=== PATIENT | female | born 1945 | race Caucasian/White ===

== ENCOUNTER 2017-08-24 06:55 | Emergency (ER) | payer MEDICARE ==
[2017-08-24] MEDS ORDERED: IPRATROPIUM/ALBUTEROL (0.5MG/3MG) NEB INH ONE (07:09)
--- NOTE | 2017-08-24 07:27 | Emergency Department Record ---
History of Present Illness - General Chief Complaint: Shortness of breath Stated Complaint: CÉSAR Time Seen by Provider: 08/24/17 07:13 Source: Patient Mode of Arrival: Ambulatory Limitations: No limitations - History of Present Illness Initial Comments: The patient is here due to a cough and congestion with SOB. She has been ill for over a week with a cold and now for the last few days it has moved into her chest. She is coughing up small amounts of sputum but denies any CP, back pain, fever, chills, or body aches. The patient states she did take some cold medicine last night and feels that her head is now plugged up also. MD Complaint: Cough, Shortness of breath Onset/Timin -: Days(s) Severity scale (1-10): 6 Quality: Aching Consistency: Intermittent Worsens With: Coughing Associated Symptoms: Cough - Related Data Home Oxygen Therapy: No Home Medications Medication Instructions Recorded Confirmed Last Taken Carisoprodol [Soma] 350 mg PO ASDIR PRN 08/24/17 08/24/17 Unknown Fludrocortisone Acetate [Florinef] 0.25 mg PO QPM 08/24/17 08/24/17 Unknown Fludrocortisone Acetate [Florinef] 0.5 mg PO QAM 08/24/17 08/24/17 Unknown Hydrocortisone Sod Succinate 100 mg IJ ASDIR PRN 08/24/17 08/24/17 Unknown [Solu-Cortef] Hydrocortisone [Cortef] 2.5 mg PO QPM 08/24/17 08/24/17 Unknown Hydrocortisone [Cortef] 12.5 mg PO QAM 08/24/17 08/24/17 Unknown Hydromorphone HCl 2 mg PO Q4H PRN 08/24/17 08/24/17 Unknown Loratadine [Claritin] 10 mg PO ASDIR PRN 08/24/17 08/24/17 Unknown Metoprolol Tartrate [Lopressor] 12.5 mg PO Q12H 08/24/17 08/24/17 Unknown Omeprazole [Prilosec] 20 mg PO DAILY 08/24/17 08/24/17 Unknown Thyroid,Pork [Nature-Throid] 113.75 mg PO BID 08/24/17 08/24/17 Unknown Previous Rx's Medication Instructions Recorded Benzonatate [Tessalon Perle] 100 mg PO TID #20 capsule 08/24/17 Doxycycline Monohydrate [Mondoxyne 100 mg PO BID #20 capsule 08/24/17 Nl] Allergies Allergy/AdvReac Type Severity Reaction Status Date / Time meperidine [From Demerol] Allergy VOMITING Verified 08/24/17 06:58 acetaminophen [From Vicodin] AdvReac HALLUCINATI Verified 08/24/17 07:03 ONS codeine AdvReac HALLUCINATI Verified 08/24/17 07:03 ONS cyclobenzaprine AdvReac NAUSEA Verified 08/24/17 07:03 [From Flexeril] hydrocodone [From Vicodin] AdvReac HALLUCINATI Verified 08/24/17 07:03 ONS oxycodone AdvReac HALLUCINATI Verified 08/24/17 07:03 ONS tramadol AdvReac Hallucinati Verified 08/24/17 07:03 ons Travel Screening - Travel/Exposure Within Last 30 Days Have you traveled within the last 30 days?: No - Travel Symptoms Symptom Screening: None Review of Systems Constitutional: Reports: Malaise. Denies: Chills, Fever Eyes: Denies: Eye discharge ENT: Reports: Congestion Respiratory: Reports: Cough, Dyspnea. Denies: Hemoptysis, Stridor Cardiovascular: Denies: Arrhythmia, Chest pain Past Medical History - SOCIAL HISTORY Smoking Status: Never smoker - RESPIRATORY Hx Respiratory Disorders: No - CARDIOVASCULAR Hx Cardio Disorders: Yes Hx Hypertension: Yes - NEURO Hx Neuro Disorders: Yes Comment:: Cushings Disease - GI Hx GI Disorders: Yes Hx Reflux: Yes - Hx Genitourinary Disorders: Yes Hx Kidney Stones: Yes - ENDOCRINE Hx Endocrine Disorders: Yes Hx Thyroid Disease: Yes - MUSCULOSKELETAL Hx Musculoskeletal Disorders: Yes - PSYCH Hx Psych Problems: No - HEMATOLOGY/ONCOLOGY Hx Hematology/Oncology Disorders: No Family Medical History Any Significant Family History?: Yes Family Hx Comment (NOT TO BE USED IN PLACE OF ITEMS BELOW): Mom w/ circulatoin issues Hx Cancer: Grandparents Hx Heart Disease: Brother/Sister, Grandparents Hx Resp Disorders: Father Physical Exam - General General Appearance: Alert, Oriented x3, Cooperative, No acute distress - Head Head exam: Atraumatic, Normocephalic, Normal inspection - Eye Eye exam: Normal appearance, PERRL - ENT Throat exam: Normal inspection. negative: Tonsillar erythema, Tonsillar exudate - Neck Neck exam: Normal inspection, Full ROM. negative: Lymphadenopathy, Tenderness - Respiratory Respiratory exam: Decreased breath sounds. negative: Normal lung sounds bilaterally, Stridor, Wheezes - Cardiovascular Cardiovascular Exam: Regular rate, Normal rhythm, Normal heart sounds - GI/Abdominal GI/Abdominal exam: Soft, Normal bowel sounds. negative: Tenderness - Extremities Extremities exam: Normal inspection, Full ROM, Normal capillary refill. negative: Tenderness Course Vital Signs 08/24/17 06:59 Temperature 97.4 F L Pulse Rate 69 Respiratory 24 Rate Blood Pressure 201/94 Pulse Ox 95 - Reevaluation(s) Reevaluation #1: The patient is doing better at this time. She now is moving air better after the Duoneb tx and has wheezes in the lower lobes. 08/24/17 08:15 Reevaluation #2: The patient is doing much better at this time. Her RA biox is 97% and she feels MUCH better. On exam her lungs were clear with good aeration and no wheezes. She is to take the Abx with the cough medicine and to use the Ventolin as directed and return to the ER for any worsening symptoms. 08/24/17 09:05 Medical Decision Making - Data Complexity MDM Data: Labs Ordered and/or Reviewed, X-Ray Ordered and/or Reviewed - Lab Data Result diagrams: 08/24/17 07:46 08/24/17 07:46 - Radiology Data Radiology results: Report reviewed (CXR: Neg for infiltrate, CMG.) Disposition Disposition: Discharge Clinical Impression: Asthmatic bronchitis Qualifiers: Asthma severity: mild Asthma persistence: intermittent Asthma complication type : with acute exacerbation Qualified Code(s): J45.21 - Mild intermittent asthma with (acute) exacerbation Disposition: Home, Self-Care Condition: (2) Stable Instructions: Dyspnea (ED) Additional Instructions: Please use the Ventolin 2 puffs 4 times a day and take the Doxycycline and Tessalon for cough as directed. Please see your PCP later this week for recheck and return to the ER for any worsening symptoms or for any fever or chest pain. Prescriptions: Benzonatate [Tessalon Perle] 100 mg PO TID #20 capsule Doxycycline Monohydrate [Mondoxyne Nl] 100 mg PO BID #20 capsule Forms: Patient Portal Access Time of Disposition: 09:00 Quality - Quality Measures Quality Measures: N/A - Blood Pressure Screening View Details: Yes Does Patient Have Any of the Following: Active Dx of HTN Blood Pressure Classification: Hypertensive Reading Systolic Measurement: 201 Diastolic Measurement: 94 Screening for High Blood Pressure: Patient Exclusion, Hx of HTN [G9744]
[2017-08-24 07:54] LABS: BASO % 0.8 % (0-6); EOS % 5.3 % (0-6); GRAN % 60.6 % (47-80); HEMATOCRIT 37.1 % (35.0-47.0); HEMOGLOBIN 12.1 gm/dl (11.6-16.0); LYMPH % 25.1 % (16-45); MEAN CORPUSCULAR HEMOGLOBIN 24.4 pg (27-33); MEAN CORPUSCULAR HGB CONC 32.6 g/dl (32-36); MEAN PLATELET VOLUME 10.4 fl (7.4-10.4); MONO % 8.2 % (0-9); PLATELET COUNT 244 K/uL (130-400); RED BLOOD COUNT 4.95 M/uL (3.80-5.40); RED CELL DISTRIBUTION WIDTH 14.6 % (11.5-14.5); WHITE BLOOD COUNT W/O DIFF 6.6 K/uL (4.2-12.2)
[2017-08-24 08:00] LABS: MEAN CELL VOLUME 74.9 fl (81-97)
[2017-08-24] MEDS ORDERED: ALBUTEROL SULFATE (0.083%) 2.5 MG/3 ML NEB INH ONE (08:00)
[2017-08-24 08:11] LABS: BLOOD UREA NITROGEN 13 mg/dL (8-23); CREATININE 0.6 mg/dL (0.5-0.9); EST GLOMERULAR FILTRATION RATE > 60 mL/min
[2017-08-24 08:14] LABS: GLUCOSE,RANDOM 89 mg/dL (74-109)
[2017-08-24] MEDS ORDERED: ALBUTEROL HFA 8 GM INHALER INH ONE (08:39)
--- NOTE | 2017-08-24 08:40 | RADIOLOGY REPORT ---
EXAM: CHEST, TWO VIEWS HISTORY: COUGH, CONGESTION AND DIFFICULTY IN BREATHING FOR THREE DAYS. TECHNIQUE: Upright PA and lateral views of the chest were obtained. Comparison: None. FINDINGS: The heart projects mildly enlarged, but without pulmonary venous hypertension. The thoracic aorta is tortuous and atherosclerotic. No lung consolidation is seen. There is minimal left lateral costophrenic angle blunting consistent with scarring or small effusion. There are mild degenerative changes scattered throughout the visualized spine. Surgical clips are noted in the upper abdomen right of midline. Orthopedic hardware affixes the lower cervical spine, incompletely imaged. IMPRESSION: 1. MILD CARDIOMEGALY WITHOUT PULMONARY VENOUS HYPERTENSION. 2. NO DEFINITE LUNG CONSOLIDATION. 3. MINOR LEFT LATERAL COSTOPHRENIC ANGLE BLUNTING SUGGESTED CONSISTENT WITH SCARRING OR SMALL EFFUSION. JOB NUMBER: [id number] MTDD
== END 2017-08-24 09:03 | disposition home or self-care (01) ==
LOC: ER 06:55
DX: J45.21 Mild intermittent asthma with (acute) exacerbation (principal); I10 Essential (primary) hypertension
CPT/HCPCS: 71046; 80048; 85025; 86140; 94640; 94664; 99283; 99284; J7613

== ENCOUNTER 2017-08-25 20:02 | Emergency (ER) | payer MEDICARE ==
[2017-08-25] MEDS ORDERED: IPRATROPIUM/ALBUTEROL (0.5MG/3MG) NEB INH ONE (20:15)
[2017-08-25] MEDS ORDERED: METHYLPREDNISOLONE PF 125MG/VIAL IVP ONE (20:22)
[2017-08-25] MEDS ORDERED: ONDANSETRON HCL IV 4 MG/2 ML VIAL IVP ONE (20:23)
--- NOTE | 2017-08-25 20:27 | Emergency Department Record ---
History of Present Illness - General Chief Complaint: Shortness of breath Stated Complaint: NAUSEA, CÉSAR Time Seen by Provider: 08/25/17 20:18 Source: Patient Mode of Arrival: Ambulatory Limitations: No limitations - History of Present Illness Initial Comments: 72 yo female returns to ED for worsening difficulty in breathing symptoms in addition to nausea and vomiting symptoms. Patient was seen yesterday in ED , diagnosed with bronchitis, started on Tessalon and Doxy but reports that the Doxycycline has caused her to vomit, has not been taking the medication. Patient denies previous heart or lung disease, reports history adrenal insufficiency. Patient denies fevers/chills symptoms. MD Complaint: Shortness of breath Onset/Timin -: Days(s) Severity: Moderate Consistency: Constant Improves With: Other Worsens With: Movement Known History Of: Other Context: Recent illness, Recent URI Associated Symptoms: Nausea/vomiting Treatments Prior to Arrival: Bronchodilator - Related Data Previous Rx's Medication Instructions Recorded Benzonatate [Tessalon Perle] 100 mg PO TID #20 capsule 08/24/17 Doxycycline Monohydrate [Mondoxyne 100 mg PO BID #20 capsule 08/24/17 Nl] Ondansetron [Zofran Odt] 4 mg PO Q8H PRN #15 tab.rapdis 08/25/17 Prednisone [Prednisone 20Mg] 20 mg PO TID #12 tab 08/25/17 Allergies Allergy/AdvReac Type Severity Reaction Status Date / Time meperidine [From Demerol] Allergy VOMITING Verified 08/24/17 06:58 acetaminophen [From Vicodin] AdvReac HALLUCINATI Verified 08/24/17 07:03 ONS codeine AdvReac HALLUCINATI Verified 08/24/17 07:03 ONS cyclobenzaprine AdvReac NAUSEA Verified 08/24/17 07:03 [From Flexeril] hydrocodone [From Vicodin] AdvReac HALLUCINATI Verified 08/24/17 07:03 ONS oxycodone AdvReac HALLUCINATI Verified 08/24/17 07:03 ONS tramadol AdvReac Hallucinati Verified 08/24/17 07:03 ons Travel Screening - Travel/Exposure Within Last 30 Days Have you traveled within the last 30 days?: No - Travel Symptoms Symptom Screening: Weakness Review of Systems Constitutional: Denies: Chills, Fever, Malaise, Night sweats Eyes: Denies: Eye discharge, Eye pain ENT: Reports: Congestion. Denies: Ear pain, Epistaxis Respiratory: Reports: Cough, Dyspnea Cardiovascular: Reports: Chest pain, Dyspnea on exertion. Denies: Edema Endocrine: Denies: Fatigue, Heat or cold intolerance Gastrointestinal: Reports: Nausea, Vomiting. Denies: Abdominal pain Genitourinary: Denies: Incontinence, Retention Musculoskeletal: Denies: Arthralgia, Back pain, Gout, Joint swelling Skin: Denies: Bruising, Change in color Neurological: Denies: Abnormal gait, Confusion, Headache, Seizure Psychiatric: Denies: Anxiety Hematological/Lymphatic: Denies: Anemia, Blood Clots Past Medical History - SOCIAL HISTORY Smoking Status: Never smoker Alcohol Use: None Drug Use: None - RESPIRATORY Hx Respiratory Disorders: No - CARDIOVASCULAR Hx Cardio Disorders: Yes Hx Hypertension: Yes - NEURO Hx Neuro Disorders: Yes Comment:: Cushings Disease - GI Hx GI Disorders: Yes Hx Reflux: Yes - Hx Genitourinary Disorders: Yes Hx Kidney Stones: Yes - ENDOCRINE Hx Endocrine Disorders: Yes Hx Thyroid Disease: Yes - MUSCULOSKELETAL Hx Musculoskeletal Disorders: Yes - PSYCH Hx Psych Problems: No - HEMATOLOGY/ONCOLOGY Hx Hematology/Oncology Disorders: No Family Medical History Any Significant Family History?: Yes Family Hx Comment (NOT TO BE USED IN PLACE OF ITEMS BELOW): Mom w/ circulatoin issues Hx Cancer: Grandparents Hx Heart Disease: Brother/Sister, Grandparents Hx Resp Disorders: Father Physical Exam - General General Appearance: Alert, Oriented x3, Cooperative, Moderate distress Limitations: No limitations - Head Head exam: Atraumatic, Normocephalic, Normal inspection Head exam detail: negative: Abrasion, Contusion, Beckford's sign, General tenderness, Hematoma, Laceration - Eye Eye exam: Normal appearance. negative: Conjunctival injection, Periorbital swelling, Periorbital tenderness, Scleral icterus - ENT Ear exam: negative: Auricular hematoma, Auricular trauma Nasal Exam: negative: Active bleeding, Discharge, Dried blood, Foreign body Mouth exam: negative: Drooling, Laceration, Muffled voice, Tongue elevation - Neck Neck exam: Normal inspection. negative: Meningismus, Tenderness - Respiratory Respiratory exam: Decreased breath sounds, Wheezes. negative: Rales, Respiratory distress, Rhonchi, Stridor - Cardiovascular Cardiovascular Exam: Regular rate, Normal rhythm, Normal heart sounds - GI/Abdominal GI/Abdominal exam: Soft. negative: Rebound, Rigid, Tenderness - Rectal Rectal exam: Deferred - exam: Deferred - Extremities Extremities exam: Normal inspection. negative: Calf tenderness, Pedal edema, Tenderness - Back Back exam: Denies: CVA tenderness (R), CVA tenderness (L) - Neurological Neurological exam: Alert, Normal gait, Oriented X3 - Psychiatric Psychiatric exam: Normal affect, Normal mood - Skin Skin exam: Normal color. negative: Abrasion Type of lesion: negative: abrasion Course Vital Signs 08/25/17 20:08 Temperature 98.2 F Pulse Rate 67 Respiratory 22 Rate Blood Pressure 192/85 Pulse Ox 96 - Reevaluation(s) Reevaluation #1: 08/25/17 20:43 EKG: NSR 63 Normal axis, IVCD No acute ST-T wave changes Reevaluation #2: 08/25/17 20:55 Labs reviewed and are grossly unremarkable for an acute process. Reevaluation #3: 08/25/17 21:27 Patient reassessed and reports that she is feeling much improved. I discussed placing the patient in observation for her symptoms, however she reports that she would prefer to go home at this time with a return for any worsening in her symptoms. Will discharge home at this time. Medical Decision Making - Lab Data Result diagrams: 08/25/17 20:15 08/25/17 20:22 Disposition Disposition: Discharge Clinical Impression: Asthmatic bronchitis Qualifiers: Asthma severity: moderate Asthma persistence: persistent Asthma complication type: with acute exacerbation Qualified Code(s): J45.41 - Moderate persistent asthma with (acute) exacerbation Disposition: Home, Self-Care Condition: (2) Stable Instructions: Acute Bronchitis (ED) Additional Instructions: Return to ED if your symptoms worsen or if you have any concerns. Prednisone and Zofran as directed. Follow-up with your family doctor in 3-5 days as directed. Prescriptions: Ondansetron [Zofran Odt] 4 mg PO Q8H PRN #15 tab.rapdis PRN Reason: Nausea/Vomiting Prednisone [Prednisone 20Mg] 20 mg PO TID #12 tab Forms: Patient Portal Access Time of Disposition: 21:30 Quality - Quality Measures Quality Measures: N/A - Blood Pressure Screening Does Patient Have Any of the Following: No Blood Pressure Classification: Pre-Hypertensive BP Reading Systolic Measurement: 192 Diastolic Measurement: 85 Screening for High Blood Pressure: < Pre-Hypertensive BP, F/U Documented > [ G8950] Pre-Hypertensive Follow-up Interventions: Referral to alternative/primary care provider.
[2017-08-25] MEDS ORDERED: 0.9 % SODIUM CHLORIDE 1000ML 500 ML IV SCH (20:30)
[2017-08-25 20:32] LABS: BASO % 0.7 % (0-6); EOS % 3.3 % (0-6); GRAN % 69.7 % (47-80); HEMATOCRIT 35.3 % (35.0-47.0); HEMOGLOBIN 11.5 gm/dl (11.6-16.0); LYMPH % 18.4 % (16-45); MEAN CELL VOLUME 73.7 fl (81-97); MEAN CORPUSCULAR HGB CONC 32.6 g/dl (32-36); MEAN PLATELET VOLUME 9.7 fl (7.4-10.4); MONO % 7.9 % (0-9); PLATELET COUNT 246 K/uL (130-400); RED BLOOD COUNT 4.79 M/uL (3.80-5.40); RED CELL DISTRIBUTION WIDTH 14.3 % (11.5-14.5); WHITE BLOOD COUNT W/O DIFF 5.7 K/uL (4.2-12.2)
[2017-08-25 20:46] LABS: BLOOD UREA NITROGEN 9 mg/dL (8-23)
[2017-08-25 20:47] LABS: CREATININE 0.6 mg/dL (0.5-0.9); EST GLOMERULAR FILTRATION RATE > 60 mL/min; TOTAL PROTEIN 6.7 g/dL (6.6-8.7)
[2017-08-25 20:49] LABS: GLUCOSE,RANDOM 89 mg/dL (74-109)
[2017-08-25 20:52] LABS: ALB/GLOB RATIO 1.5 (1.1-1.8); ALKALINE PHOSPHATASE 44 U/L (35-104); ALT/SGPT 31 U/L (<33); AST/SGOT 21 U/L (10.0-35.0)
[2017-08-25] MEDS ORDERED: ONDANSETRON 4 MG ODT TABLET SL ONE (21:40)
--- NOTE | 2017-08-27 07:20 | RADIOLOGY REPORT ---
EXAM: CHEST, TWO VIEWS HISTORY: DIFFICULTY BREATHING. TECHNIQUE: Frontal and lateral views of the chest were performed. FINDINGS: The heart size is normal. No pulmonary vascular congestion. No infiltrate or pleural effusion. IMPRESSION: NO ACUTE DISEASE PROCESS. JOB NUMBER: [id number] MTDD
== END 2017-08-25 21:51 | disposition home or self-care (01) ==
LOC: ER 20:02
DX: J45.41 Moderate persistent asthma with (acute) exacerbation (principal); R06.02 Shortness of breath; R11.2 Nausea with vomiting, unspecified; I10 Essential (primary) hypertension
CPT/HCPCS: 99284 ×2; 96374; 96375; 96361; 85025; 80053; 84484; 71046; 94640; 93005; 93010; J2405; J2930; J7030